=== PATIENT | female | born 1970 | race Hispanic/Latino ===

== ENCOUNTER 2021-11-05 09:41 | Emergency (ER) | payer BC, OTHER ==
[~2021-11-05] VITALS: Ht 170.2 cm; Wt 74.8 kg
[2021-11-05] MEDS ORDERED: ACETAMINOPHEN 500 MG TABLET PO ONE (10:00)
[2021-11-05 10:15] LABS: BASOPHILS % (AUTO) 1.4 % (0.0-5.0); EOSINOPHILS % (AUTO) 9.2 % (0.0-8.0); HEMATOCRIT 47.4 % (36-48); LYMPHOCYTES % (AUTO) 22.3 % (21.0-51.0); MEAN CORPUSCULAR HEMOGLOBIN 29.7 pg (27.0-33.0); MEAN CORPUSCULAR HGB CONC 32.9 g/dL (32.0-36.0); MEAN CORPUSCULAR VOLUME 90.3 fL (79-99); NEUTROPHILS % (AUTO) 60.8 % (40.0-77.0); PLATELET COUNT (AUTO) 301 K/uL (130-400); RED BLOOD CELL COUNT(AUTO) 5.25 MIL/uL (4.00-5.50); RED CELL DISTRIBUTION WIDTH 12.5 % (11.0-15.5)
[2021-11-05 10:19] LABS: CREATININE 0.8 mg/dL (0.5-1.5)
[2021-11-05 10:24] LABS: ALBUMIN 3.7 g/dL (3.5-5.0); BILIRUBIN,TOTAL 0.5 mg/dL (0.2-1.0); TOTAL PROTEIN, SERUM 7.6 g/dL (6.0-8.3)
[2021-11-05 10:26] LABS: APPEARANCE,URINE TURBID (CLEAR); BILIRUBIN,URINE MODERATE (NEGATIVE); COLOR,URINE BROWN (YELLOW); GLUCOSE, URINE (UA) NEGATIVE (NEGATIVE); KETONES,URINE 5 mg/dL (NEGATIVE); LEUKOCYTE ESTERASE ,URINE SMALL (NEGATIVE); NITRATE,URINE POSITIVE (NEGATIVE); OCCULT BLOOD,URINE LARGE (NEGATIVE); PH,URINE 6.5 (5.0-8.0); PROTEIN,URINE >=300 mg/dL (NEGATIVE)
[2021-11-05 10:48] LABS: BACTERIA,URINE Few /HPF (None Seen); RBC,URINE TNTC /HPF (0-1)
[2021-11-05 11:02] VITALS: BP 142/70
== END 2021-11-05 11:06 | disposition home or self-care (01) ==
LOC: EDH 09:41
DX: N93.8 Other specified abnormal uterine and vaginal bleeding (principal)
CPT/HCPCS: 36415; 80053; 81001; 81025; 85025; 87088

== ENCOUNTER 2022-08-05 11:58 | Emergency (ER) | payer BC ==
[~2022-08-05] VITALS: Ht 170.2 cm; Wt 99.8 kg
[2022-08-05 12:21] LABS: HEMATOCRIT 43.4 % (36-48); MEAN CORPUSCULAR HGB CONC 34.3 g/dL (32.0-36.0); MEAN CORPUSCULAR VOLUME 87.5 fL (79-99); PLATELET COUNT (AUTO) 173 K/uL (130-400); RED BLOOD CELL COUNT(AUTO) 4.96 MIL/uL (4.00-5.50); RED CELL DISTRIBUTION WIDTH 12.1 % (11.0-15.5)
[2022-08-05 12:33] LABS: CREATININE 0.9 mg/dL (0.5-1.5); POTASSIUM 3.4 mmol/L (3.5-5.1)
[2022-08-05 12:38] LABS: ALBUMIN 3.2 g/dL (3.5-5.0); TOTAL PROTEIN, SERUM 6.8 g/dL (6.0-8.3)
[2022-08-05] MEDS ORDERED: BUDESONIDE 0.5 MG/2 ML INH IH ONE (12:50)
[2022-08-05] MEDS ORDERED: IPRATROPIUM/ALBUTEROL SULFATE 3 ML SOLUTION IH ONE (13:00)
[2022-08-05] MEDS ORDERED: ALBUTEROL 0.083% 2.5 MG/3 ML INH IH ONE ×2 (13:00→14:30)
[2022-08-05 13:28] LABS: APPEARANCE,URINE CLEAR (CLEAR); BILIRUBIN,URINE NEGATIVE (NEGATIVE); COLOR,URINE YELLOW (YELLOW); GLUCOSE, URINE (UA) NEGATIVE (NEGATIVE); KETONES,URINE NEGATIVE (NEGATIVE); LEUKOCYTE ESTERASE ,URINE 250 Leu/uL (NEGATIVE); NITRATE,URINE NEGATIVE (NEGATIVE); OCCULT BLOOD,URINE NEGATIVE (NEGATIVE); PROTEIN,URINE 30 mg/dL (NEGATIVE); UROBILINOGEN,URINE 3 mg/dL (0.2-1.0)
[2022-08-05 13:33] LABS: BACTERIA,URINE FEW /HPF (None Seen); MUCUS,URINE FEW LPF (None Seen); SQUAMOUS EPITHELIAL CELL,UR MOD /HPF (0-2)
[2022-08-05 13:53] LABS: BAND NEUTROPHILS % (MANUAL) 3 % (0-2); EOSINOPHILS % (MANUAL) 8 % (1-6); LYMPHOCYTES % (MANUAL) 11 % (22-44); MAN.DIFF COMMENT-IMPRESSION MANUAL DIFFERENTIAL; MONOCYTES % (MANUAL) 3 % (2-9); PLATELET MORPHOLOGY COMMENT ADEQUATE; SEGMENTED NEUTROPHILS % 75 % (40-70)
[2022-08-05] MEDS ORDERED: CEFTRIAXONE 1G VIAL IVP ONE (14:00)
[2022-08-05] MEDS ORDERED: SOLU-MEDROL 125MG VIAL ONE (14:22)
[2022-08-05] MEDS ORDERED: SOLU-MEDROL 125MG VIAL IVP ONE (14:30)
[2022-08-05 14:40] LABS: ABG BASE EXCESS 1.1 mmol/L (-2.0-3.0); ABG HCO3 22.5 mmol/L (21.0-28.0); ABG OXYGEN SATURATION 86.3 % (95.0-99.0); ABG PCO2 28 mmHg (32-45)
[2022-08-05] MEDS ORDERED: IOHEXOL 350 MG/ML 100ML INFUS..BTL IV ONE (14:51)
[2022-08-05] MEDS ORDERED: HYDROXYZINE 50MG VIAL 50 MG/ML VIAL IM SCH (15:00)
[2022-08-05 17:20] VITALS: BP 132/75
[2022-08-05] MEDS ORDERED: BUDESONIDE 0.5 MG/2 ML INH IH SCH (21:00)
== END 2022-08-05 17:49 | disposition home or self-care (01) ==
LOC: EDH 11:58
DX: F41.9 Anxiety disorder, unspecified (principal); R05.9 Cough, unspecified; R50.9 Fever, unspecified; Z20.822 Contact with and (suspected) exposure to COVID-19; Z79.52 Long term (current) use of systemic steroids; Z79.51 Long term (current) use of inhaled steroids
CPT/HCPCS: 99285; 96374; 71270; 71045; 87635; 84484; 80053; 82803; 85025; 85378; 87088; 87880; 87807; 87804 ×2; 86738; 81001; 81025; 36415; 93005; 36600; 94660; 96372; 94640 ×4; C9803; J3410; J2930; J0696; Q9967

== ENCOUNTER 2023-04-16 18:31 | Emergency (ER) | payer BC, OTHER ==
[~2023-04-16] VITALS: Ht 170.2 cm; Wt 70.3 kg
[2023-04-16 18:32] VITALS: BP 179/80; PULSE 56; RESP 18
[2023-04-16] MEDS ORDERED: ERYT1OIN7 OP (20:59)
== END 2023-04-16 22:24 | disposition home or self-care (01) ==
LOC: EDH 18:31 → EEVIPCON 18:31 → EDH 22:24
DX: H10.9 Unspecified conjunctivitis (principal)